=== PATIENT | female | born 1980 | race Asian ===

== ENCOUNTER 2024-06-18 22:24 | Emergency (ER) | payer SELFPAY ==
[2024-06-18 22:28] VITALS: BP 128/87
[2024-06-18 22:51] LABS: % Basophils 0.8 % (0-2); % Eosinophils 4.6 % (0-6); % Immature Granulocytes 0.4 % (0-0.5); % Lymphocytes 32.2 % (20.5-51.1); % Monocytes 8.5 % (1.7-9.3); % Neutrophils 53.5 % (42.2-75.2); Absolute Basophils 0.1 10^3/uL (0-0.2); Absolute Eosinophils 0.4 10^3/uL (0-0.7); Absolute Lymphocytes 2.5 10^3/uL (1.2-3.4); Absolute Monocytes 0.7 10^3/uL (0.1-0.6); Absolute Neutrophils 4.1 10^3/uL (1.4-6.5); Hematocrit 37.6 % (37.0-47.0); Hemoglobin 13.3 g/dL (12.0-16.0); Mean Corp Hgb Conc. 35.4 g/dL (33.0-37.0); Mean Corpuscular Volume 84.9 fL (81.0-99.0); Mean Platelet Volume 9.1 fL (7.4-10.4); Nucleated Red Blood Cells % 0 %; Platelet Count 290 10^3/uL (130-400); Red Blood Cell Count 4.43 10^6/uL (4.20-5.40); Red Cell Dist. Width 12.4 % (11.5-14.5); White Blood Cell Count 7.6 10^3/uL (4.8-10.8)
[2024-06-18 22:59] LABS: HCG, Serum Qualitative Screen Negative
[2024-06-18 23:03] LABS: ALT (SGPT) 19 U/L (0-35); AST (SGOT) 24 U/L (14-36); Albumin 4.6 g/dl (3.5-5.0); Alkaline Phosphatase 53 U/L (38-126); Blood Urea Nitrogen 9 mg/dl (7-17); Calcium 9.5 mg/dl (8.4-10.2); Carbon Dioxide 22 mmol/L (22-30); Chloride 104 mmol/L (98-107); Glucose 110 mg/dl (70-99); Lipase 86 U/L (23-300); Potassium 4.1 mmol/L (3.5-5.1); Sodium 139 mmol/L (135-145); Total Bilirubin 0.5 mg/dl (0.2-1.3); Total Protein 7.4 g/dl (6.3-8.2); eGFR > 60.00
[2024-06-18 23:12] LABS: Troponin I 0.025 ng/ml
[2024-06-19 01:22] VITALS: BP 102/72
[2024-06-19 01:26] VITALS: BMI 29.8
[2024-06-19 01:49] VITALS: BP 102/67
[2024-06-19 02:00] VITALS: BP 107/72
[2024-06-19 02:22] LABS: Troponin I < 0.012 ng/ml
[2024-06-19 02:40] LABS: D-Dimer < 0.27 ug/mlFEU (0.00-0.50)
--- NOTE | 2024-06-19 02:57 | ED.GENMED ---
History of Present Illness
General
Chief Complaint: Abdominal Pain
Source: patient and family
Exam Limitations: none
Time Seen by Provider: 06/19/24 01:09
History of Present Illness
History of Present Illness:
43-year-old female with about 3 days of epigastric pain with radiation to the left upper back. No shortness of breath no pleuritic pain. No nausea or vomiting. No exertional component. No history of similar episodes.
Past History
Past History
ED Past Medical History: Hypercholesterolemia and Hypothyroidism
Review of Systems
Review of Systems
All Other Systems: Not applicable
Constitutional: Denies fever
Respiratory: Denies trouble breathing
Cardiac: Denies syncope
Phy Exam
Physical Exam
Physical Exam:
GENERAL: Alert and oriented in no apparent distress
EYE: Orbits normal.
NECK: Supple
CARDIAC: Regular rate and rhythm without any obvious murmurs.
LUNGS: Clear breath sounds,normal
ABDOMEN: Soft, minimal epigastric tenderness. No rebound or guarding no mass or hernia
NEUROLOGICAL: Alert and oriented , grossly non-focal
SKIN: Warm and dry, no rash or lesion, no discoloration, skin intact.
MUSCULOSKELETAL: No edema,no deformity.Good color
PSYCH: Normal and appropriate interaction.
Course
Orders/Labs/Results
Orders:
Orders
06/18/24 22:32
Electrocardiogram (*1) Urgent
Reason for Study: Chest Pain
EKG- Treatment ONCE
Test Result ONCE
06/18/24 22:41
Complete Blood Count/With Diff Urgent
Comprehensive Metabolic Panel Urgent
HCG, Serum Qualitative Screen Urgent
Lipase Urgent
Troponin I Urgent
06/19/24 01:19
US Abdomen Complete/Upper Urgent
Comment:
Reason For Exam: Upper abdominal pain/radiation to back
06/19/24 01:20
Electrocardiogram (*1) Stat
Reason for Study: Other
Other Reason for Exam: chest pain
EKG- Treatment ONCE
06/19/24 01:48
D-Dimer Urgent
Troponin I Urgent
06/19/24 03:10
EKG- Treatment ONCE
Pantoprazole [Protonix IV] 40 mg IV NOW STA
06/19/24 03:11
CT Abd/Pel (IV only)-DH only Urgent
Comment:
Reason For Exam: Upper abdominal pain to back
06/19/24 04:00
Electrocardiogram (*1) Stat
Reason for Study: Other
Other Reason for Exam: chest pain
06/19/24 04:20
Troponin I Urgent
Abnormal Lab Results
06/18/24
22:41
Absolute Monos (auto) 0.7 H 10^3/uL
(0.1-0.6)
Glucose 110 H mg/dl
(70-99)
06/18/24 22:41
06/18/24 22:41
Vital Signs
Initial and Last Documented VS:
Initial Vital Signs
Temp Pulse Resp BP Pulse Ox
98.6 F 81 18 128/87 96
06/18/24 22:28 06/18/24 22:28 06/18/24 22:28 06/18/24 22:28 06/18/24 22:28
Last Documented Vital Signs
Temp Pulse Resp BP Pulse Ox
98.6 F 88 20 107/66 100
06/18/24 22:28 06/19/24 05:34 06/19/24 05:34 06/19/24 05:34 06/19/24 05:34
*Radiology
Radiology exam reviewed: radiology read reviewed (Unremarkable ultrasound)
*Pulse Oximetry
Patient hypoxic: no
*EKG
Interpreted by ED Provider?: Yes
Interpretation: normal
Comparison EKG: no comparison EKG present
Heart Rate: 78
Rate: normal
Rhythm: sinus
[place]: normal axis
Interval: normal interval
QRS Pattern: normal QRS
Ischemia: no ischemia
*Critical Care Note
Total Time (30-74mins, 75-104mins- exclusive of procedures): Not Applicable
Update Note
Update Note:
Repeat EKG with no acute changes. Rate 73. No ischemic changes.
All initial testing is negative. Ultrasound is unremarkable. Labs are normal cardiac testing normal x 2. D-dimer negative. Very very low suspicion for vascular emergency. Patient states she is essentially asymptomatic at this time. On further
history patient states she has had this for about a week she wakes up fine in the morning it is worse in the afternoon and evening after eating. She is convinced heavy meals make the pain worse. Given the location of the discomfort this would be
most consistent with a gastritis or possibly peptic ulcer disease. However because of her elevated cholesterol issue we will do a third troponin and EKG. Will start on Protonix and have follow-up if all this testing is negative
ED Attending Note
-
Portions of this chart may have been created with voice recognition software.� Occasional wrong word or��sound alike� substitutions may have occurred due to the inherent limitations of voice recognition software.
Discharge Plan
Departure
Patient Disposition: Home (Routine Discharge)
Date of Disposition: 06/19/24
Time of Disposition: 05:23
Patient with high blood pressure during this ER visit?: No
Condition: Good
Discharge Problem:
Epigastric pain
Instructions: Chest Pain CBC Follow Up, Abdominal Pain
Prescriptions:
New
pantoprazole [Protonix] 40 mg tablet,delayed release (DR/EC)
40 mg PO DAILY Qty: 14 0RF
Referrals:
Daisy Akers MD [Active] - Next open appointment
NONE,* [Family Provider] -
Activity Restrictions/Additional Instructions:
Your prescription was sent to your pharmacy
I gave you the name of a GI physician you could call also with persistent symptoms
Of course if your symptoms progress, chest pain shortness of breath fever, immediately return to the ER for reevaluation
Interventions
Interventions:
*Risk Screen - Suicide Last Done: 06/18/24 22:28
*General Assessment Last Done: 06/18/24 22:28
*Neglect/Abuse Screening Last Done: 06/18/24 22:28
ED- Fall Risk Assessment Last Done: 06/19/24 01:23
*ED COVID-19 Vaccine History Last Done: 06/19/24 01:23
*Nursing Disposition Last Done: 06/19/24 04:35
TG-Dzujfn-Ztkgxddgeq Assessment Last Done: 06/19/24 01:23
Discharge Date and Time
Discharge Date/Time: 06/19/24 05:35
Print Language: HUNGARIAN
[2024-06-19] MEDS: PROTONIX IV 40 MG IV (04:24)
[2024-06-19 04:28] VITALS: BP 104/61
[2024-06-19 05:00] VITALS: BP 107/66
[2024-06-19 05:09] LABS: Troponin I < 0.012 ng/ml
[2024-06-19 05:34] VITALS: BP 107/66
== END 2024-06-19 05:35 | disposition home or self-care (01) ==
LOC: EMR 22:24
PROVIDERS: EMERGENCY PHYSICIAN Emergency Medicine
DX: R10.13 Epigastric pain (principal); M54.6 Pain in thoracic spine; R07.9 Chest pain, unspecified; E78.00 Pure hypercholesterolemia, unspecified; E03.9 Hypothyroidism, unspecified
CPT/HCPCS: 99285; 96374; 74177; 76700; 80053; 83690; 84484; 84703; 85025; 85379; 93005; Q9967

== ENCOUNTER 2024-12-30 14:50 | Emergency (ER) | payer SELFPAY ==
[2024-12-30 14:52] VITALS: BP 128/99
[2024-12-30 15:10] LABS: % Basophils 0.3 % (0-2); % Eosinophils 10.3 % (0-6); % Immature Granulocytes 0.6 % (0-0.5); % Lymphocytes 33.2 % (20.5-51.1); % Monocytes 8.2 % (1.7-9.3); % Neutrophils 47.4 % (42.2-75.2); Absolute Eosinophils 0.8 10^3/uL (0-0.7); Absolute Immature Granulocytes 0.1 10^3/uL (0-0.05); Absolute Lymphocytes 2.6 10^3/uL (1.2-3.4); Absolute Monocytes 0.6 10^3/uL (0.1-0.6); Absolute Neutrophils 3.7 10^3/uL (1.4-6.5); Hemoglobin 13.1 g/dL (12.0-16.0); Mean Corp Hgb Conc. 34.5 g/dL (33.0-37.0); Mean Corpuscular Hgb 29.2 pg (27.0-31.0); Mean Corpuscular Volume 84.6 fL (81.0-99.0); Mean Platelet Volume 8.8 fL (7.4-10.4); Nucleated Red Blood Cells % 0 %; Platelet Count 325 10^3/uL (130-400); Red Blood Cell Count 4.49 10^6/uL (4.20-5.40); Red Cell Dist. Width 13.2 % (11.5-14.5); White Blood Cell Count 7.8 10^3/uL (4.8-10.8)
[2024-12-30 15:24] LABS: ALT (SGPT) 16 U/L (0-35); AST (SGOT) 21 U/L (14-36); Albumin 4.4 g/dl (3.5-5.0); Alkaline Phosphatase 61 U/L (38-126); Blood Urea Nitrogen 11 mg/dl (7-17); Calcium 9.8 mg/dl (8.4-10.2); Carbon Dioxide 24 mmol/L (22-30); Chloride 104 mmol/L (98-107); Glucose 113 mg/dl (70-99); Lipase 98 U/L (23-300); Potassium 3.9 mmol/L (3.5-5.1); Sodium 137 mmol/L (135-145); Total Bilirubin 0.5 mg/dl (0.2-1.3); Total Protein 7.3 g/dl (6.3-8.2); eGFR > 60.00
--- NOTE | 2024-12-30 16:14 | ED.GENMED ---
History of Present Illness
General
Chief Complaint: Abdominal Pain
Source: patient
Exam Limitations: none
Time Seen by Provider: 12/30/24 16:05
Nursing documentation reviewed up to this point in time: agreed with
History of Present Illness
History of Present Illness:
44-year-old female with past medical history of hyperlipidemia, hypothyroidism who presents emergency department today with concerns of diffuse abdominal pain for the past 6 days. Patient states that she does get some acid reflux occasionally
states that this started with some epigastric pain and reflux symptoms however then she started to get pain with eating and noted that she started to have right sided belly pain and now feels belly pain diffusely, worse in the right lower quadrant..
She denies any shortness of breath. She also notes some nausea but no vomiting. Patient states that this has been difficult for her to eat due to the pain. She denies radiation of the pain to the back. She denies any family personal history of
cardiac disease. She denies any vaginal discharge. She denies any burning with urination.
Past History
Past History
ED Past Medical History: Hypercholesterolemia and Hypothyroidism
Review of Systems
Review of Systems
All Other Systems: ROS reviewed and negative except as documented in HPI and ROS
Phy Exam
Physical Exam
Physical Exam:
General: Patient is well appearing and in no acute distress; non-toxic
Skin: Warm and dry, no rashes or lesions
Head: Normocephalic, atraumatic
Eyes: Sclera non-icteric. EOMs intact.
Cardiac: Regular rate and rhythm, no murmurs, no tenderness palpation of external chest wall
Pulm: Normal respiratory effort, no wheezes, rales, rhonchi
Abdomen: Mild right lower quadrant tenderness to palpation, no rebound tenderness, no guarding, normoactive bowel sounds
Neuro: CN II-XII intact, no focal neurologic deficits.
Psychiatric: Appropriate mood and affect.
Course
Orders/Labs/Results
Orders:
Orders
12/30/24 14:58
Complete Blood Count/With Diff Urgent
Comprehensive Metabolic Panel Urgent
Lipase Urgent
12/30/24 16:44
Electrocardiogram (*1) Urgent
Reason for Study: Abdominal Pain
EKG- Treatment ONCE
0.9% Sodium Chloride 500 ml [Nss] 500 ml IV BOLUS
Ketorolac [Toradol] 15 mg IV NOW STA
12/30/24 16:45
CT Abd/pelvis W Iv Cont Urgent
Comment:
Reason For Exam: diffuse abdominal pain, worse on the right side
12/30/24 17:05
HCG, Serum Qualitative Screen Urgent
Lipase Urgent
Troponin I Urgent
12/30/24 17:09
Ondansetron Injectable [Zofran] 4 mg .ROUTE .STK-MED ONE
12/30/24 17:11
Ondansetron Injectable [Zofran] 4 mg IV NOW STA
12/30/24 17:36
Add On- LAB Urgent
Tests Added?: hcg qual
12/30/24 18:18
Urinalysis Reflex To Culture Urgent
Date Specimen was Collected: 12/30/24
Time Specimen was Collected: 18:17
Abnormal Lab Results
12/30/24
14:58
Abs Immat Gran (auto) 0.1 H 10^3/uL
(0-0.05)
Absolute Eos (auto) 0.8 H 10^3/uL
(0-0.7)
Immature Gran % 0.6 H %
(0-0.5)
Eosinophils % 10.3 H %
(0-6)
Glucose 113 H mg/dl
(70-99)
12/30/24 14:58
12/30/24 14:58
Vital Signs
Initial and Last Documented VS:
Initial Vital Signs
Temp Pulse Resp BP Pulse Ox
98.5 F 78 16 128/99 99
12/30/24 14:52 12/30/24 14:52 12/30/24 14:52 12/30/24 14:52 12/30/24 14:52
Last Documented Vital Signs
Temp Pulse Resp BP Pulse Ox
98.2 F 72 16 108/70 98
12/30/24 20:51 12/30/24 20:51 12/30/24 20:51 12/30/24 20:51 12/30/24 20:51
MDM/Problems Addressed
Differential Diagnosis Includes:
Differentials include gastroenteritis, ovarian torsion, appendicitis, gastritis, duodenitis, ACS
MDM/Problems Addressed:
44-year-old female presents emergency department today with concerns of a week of abdominal pain. She feels like it is worse with movement worse on the right side. Started as sounding like reflux symptoms but then progressed to lower has gotten
worse. Here emergency department, patient is well-appearing no acute distress her physical exam is benign, she is afebrile. CBC and CMP unremarkable. She is not . Urinalysis negative. Troponin undetectable. EKG shows normal sinus
rhythm with no ischemic changes, no concern for ACS at this time considering patient longer has a sensation of pain radiating into her chest. CTs shows evidence of ruptured ovarian cyst with no evidence of appendicitis, suspect this in combination
with potential GERD symptoms have been responsible for her pain. Discussed conservative management follow-up with GI and an [facility] clinic. Patient stable for discharge.
*Pulse Oximetry
Patient hypoxic: no
*Critical Care Note
Total Time (30-74mins, 75-104mins- exclusive of procedures): Not Applicable
Data Reviewed
Review of Other/Old Records Reveals: Records
Patient Management
Escalation/DeEscalation of care consider admission/obs:
Admit not indicated, patient stable for discharge, case reviewed with my
ED Attending Note
-
Portions of this chart may have been created with voice recognition software.� Occasional wrong word or��sound alike� substitutions may have occurred due to the inherent limitations of voice recognition software.
Discharge Plan
Departure
Patient Disposition: Home (Routine Discharge)
Date of Disposition: 12/30/24
Time of Disposition: 21:00
Patient with high blood pressure during this ER visit?: No
Condition: Good
Discharge Problem:
Right sided abdominal pain, Rupture of ovarian cyst
Instructions: Ovarian cysts, Abdominal Pain, BLOOD PRESSURE
Prescriptions:
No Action
pantoprazole [Protonix] 40 mg tablet,delayed release (DR/EC)
40 mg PO DAILY Qty: 14 0RF
Referrals:
[facility] [Provider Group] - Call in 1-3 days for appt
Morro Bolton MD [Active] - Call in 1-3 days for appt
NONE,* [Family Provider] -
Activity Restrictions/Additional Instructions:
You can take Ibuprofen for your symptoms which you can buy [id number]. You can take 600 mg every 6 hours as needed for your pain for the next 3 days. You can take this with food.
Considering you have had similar pain in the past, I recommend calling the attached number to schedule appointment to see gastroenterology. I also recommend establishing care with a primary care provider to see you in follow-up and to continue to
monitor your symptoms. You can call the attached number for the [facility] to schedule an appointment. They will see you without insurance.
PLEASE RETURN TO THE EMERGENCY DEPARTMENT SHOULD YOU DEVELOP AN ACUTE WORSENING OF YOUR SYMPTOMS, INTRACTABLE NAUSEA OR VOMITING, FEVERS OR CHILLS, RECTAL BLEEDING, PERSISTENT DIARRHEA,, DIZZINESS, LIGHTHEADEDNESS, OR ANY OTHER SIGNS OR SYMPTOMS
WORRISOME TO YOU.
Interventions
Interventions:
*Risk Screen - Suicide Last Done: 12/30/24 14:52
*General Assessment Last Done: 12/30/24 14:52
*Neglect/Abuse Screening Last Done: 12/30/24 14:52
*ED- Fall Risk Assessment Last Done: 12/30/24 17:16
*ED COVID-19 Vaccine History Last Done: 12/30/24 14:52
*Nursing Disposition Last Done: 12/30/24 21:30
HQ-Bkykew-Mpbyvzfxbm Assessment Last Done: 12/30/24 17:16
Discharge Date and Time
Discharge Date/Time: 12/30/24 21:30
Print Language: POLISH
[2024-12-30 17:02] VITALS: BMI 28.4
[2024-12-30] MEDS: NSS 500 IV (17:06)
[2024-12-30] MEDS: TORADOL 15 MG IV (17:06)
[2024-12-30] MEDS: ZOFRAN 4 MG IV (17:11)
[2024-12-30 17:14] VITALS: BP 110/76
[2024-12-30 17:26] LABS: Lipase 92 U/L (23-300)
[2024-12-30 17:35] LABS: Troponin I < 0.012 ng/ml
[2024-12-30 17:56] LABS: HCG, Serum Qualitative Screen Negative
[2024-12-30 18:25] LABS: Urine Albumin Negative (Neg - Trace); Urine Bilirubin Negative (Negative); Urine Character Clear (Clear); Urine Glucose Negative (Negative); Urine Ketone Negative (Negative); Urine Leukocyte Negative (Negative); Urine Nitrite Negative (Negative); Urine Occult Blood Negative (Negative); Urine Urobilinogen Negative (Neg - 1+)
[2024-12-30 18:26] LABS: Urine Color Straw
[2024-12-30 20:51] VITALS: BP 108/70
== END 2024-12-30 21:30 | disposition home or self-care (01) ==
LOC: EMR 14:50
PROVIDERS: Physician Assistant; EMERGENCY PHYSICIAN Emergency Medicine
DX: R10.9 Unspecified abdominal pain (principal); E78.00 Pure hypercholesterolemia, unspecified; E03.9 Hypothyroidism, unspecified; K21.9 Gastro-esophageal reflux disease without esophagitis
CPT/HCPCS: 99284; 96374; 96375; 74177; 80053; 81003; 83690; 84484; 84703; 85025; 93005; Q9967

== ENCOUNTER 2025-01-01 16:04 | Emergency (ER) | payer SELFPAY ==
[2025-01-01 16:09] VITALS: BP 122/73
[2025-01-01 16:26] LABS: % Basophils 0.5 % (0-2); % Immature Granulocytes 0.8 % (0-0.5); % Lymphocytes 32.3 % (20.5-51.1); % Neutrophils 44.4 % (42.2-75.2); Absolute Eosinophils 0.9 10^3/uL (0-0.7); Absolute Immature Granulocytes 0.1 10^3/uL (0-0.05); Absolute Lymphocytes 2.1 10^3/uL (1.2-3.4); Absolute Monocytes 0.5 10^3/uL (0.1-0.6); Absolute Neutrophils 2.9 10^3/uL (1.4-6.5); Hematocrit 38.8 % (37.0-47.0); Hemoglobin 13.3 g/dL (12.0-16.0); Mean Corp Hgb Conc. 34.3 g/dL (33.0-37.0); Mean Corpuscular Hgb 29.1 pg (27.0-31.0); Mean Corpuscular Volume 84.9 fL (81.0-99.0); Nucleated Red Blood Cells % 0 %; Platelet Count 340 10^3/uL (130-400); Red Blood Cell Count 4.57 10^6/uL (4.20-5.40); Red Cell Dist. Width 13.3 % (11.5-14.5); White Blood Cell Count 6.6 10^3/uL (4.8-10.8)
[2025-01-01 16:37] LABS: HCG, Serum Qualitative Screen Negative
[2025-01-01 16:41] LABS: ALT (SGPT) 15 U/L (0-35); AST (SGOT) 22 U/L (14-36); Albumin 4.4 g/dl (3.5-5.0); Alkaline Phosphatase 63 U/L (38-126); Blood Urea Nitrogen 8 mg/dl (7-17); Calcium 9.5 mg/dl (8.4-10.2); Carbon Dioxide 23 mmol/L (22-30); Chloride 107 mmol/L (98-107); Glucose 119 mg/dl (70-99); Lipase 103 U/L (23-300); Potassium 3.9 mmol/L (3.5-5.1); Sodium 139 mmol/L (135-145); Total Bilirubin 0.4 mg/dl (0.2-1.3); Total Protein 7.6 g/dl (6.3-8.2); eGFR > 60.00
--- NOTE | 2025-01-01 17:58 | ED.GENMED ---
History of Present Illness
General
Chief Complaint: Abdominal Pain
Time Seen by Provider: 01/01/25 17:57
History of Present Illness
History of Present Illness:
TIME OF INITIAL ENCOUNTER: 6 PM
HPI: The patient presents with abdominal pain. She was seen here 2 days ago with abdominal pain but today the pain is more in the upper abdomen. 2 days ago, she was diagnosed with a ruptured ovarian cyst. However, she does not have any
significant lower pain. She says that the pain worsened a few hours after she ate. When she was living in [facility], she had a problem with some 'swelling of my large intestine'.
EXAM:
GENERAL: Well appearing in mild distress
HEENT: Moist oral mucosa
CARDIOVASCULAR: No murmurs, normal heart rate, regular rhythm, No chest wall tenderness
PULMONARY: No respiratory distress, breath sounds are clear and equal
ABDOMEN: Soft with no peritoneal signs, mild upper abdominal tenderness
NEUROLOGIC: Excellent strength all extremities, no coordination deficits
PSYCHIATRIC: Appropriate mental status, normal insight and judgement
EXTREMITIES: Nontender, no edema, moves all extremities equally
SKIN: No rash, no lesions
NUMBER AND COMPLEXITY OF PROBLEMS ADDRESSED AT THE ENCOUNTER
� Chronic conditions affecting care: Hyperlipidemia, hypothyroidism
� Acute Exacerbation and/or Progression of Chronic Illness: this is an acute problem
� Differential Diagnosis includes: GERD, gastritis, biliary colic, esophagitis, doubt ovarian pathology based on the location of her symptoms
AMOUNT AND/OR COMPLEXITY OF DATA TO BE REVIEWED AND ANALYZED
� I performed an independent evaluation of and my interpretation is:
EKG:
CT:
X-rays:
Laboratory Studies: White count 6.6, hemoglobin 13.3, chemistries unremarkable, hCG negative
Other: Ultrasound imaging shows a fatty liver but no sign of biliary/gallbladder disease
� Review of other/old records: I reviewed records. The patient was seen here 2 days ago. At that time white count was also normal, chemistries and hCG were also normal. She had a CAT scan of the abdomen pelvis with IV contrast
that suggested right ovarian cyst rupture.
� Clinical information was obtained by an independent historian: None needed
� Prescriptions/Medications Considered but not given:
� Further testing considered but not performed:
RISK OF COMPLICATIONS AND/OR MORBIDITY OR MORTALITY OF PATIENT MANAGEMENT
� Social determinants of health affecting care: Lives at home, lived in [place] until 1 year ago
� Discussion with other providers:
� Escalation of care including admission/observation vs risk of discharge considered: Based on location of pain and description of pain, more strongly favor GERD type of symptoms. Will give Pepcid, Protonix, and Carafate and
also check ultrasound imaging. Blood work is reassuring.
ANY OTHER UPDATES:
8:15 PM: I reassessed patient. Pain persists but somewhat improved after meds given. Will give prescription for Carafate. I am also contacting GI front office to try to expedite urgent follow-up.
Past History
Past History
ED Past Medical History: Hypercholesterolemia and Hypothyroidism
Phy Exam
Physical Exam
Physical Exam:
See HPI
Course
Orders/Labs/Results
Orders:
Orders
01/01/25 16:13
Test Result ONCE
01/01/25 16:17
CMP [Comprehensive Metabolic Panel] Urgent
Complete Blood Count/With Diff Urgent
HCG, Serum Qualitative Screen Urgent
Lipase Urgent
01/01/25 18:09
Famotidine [Pepcid] 20 mg IV NOW STA
Pantoprazole [Protonix IV] 40 mg IV NOW STA
Sucralfate Suspension [Carafate Suspension] 1 gm PO NOW STA
US Abdomen Limited Urgent
Reason For Exam: upper pain,concern for gallstones
Abnormal Lab Results
01/01/25
16:17
Abs Immat Gran (auto) 0.1 H 10^3/uL
(0-0.05)
Absolute Eos (auto) 0.9 H 10^3/uL
(0-0.7)
Immature Gran % 0.8 H %
(0-0.5)
Eosinophils % 14.0 H %
(0-6)
Glucose 119 H mg/dl
(70-99)
01/01/25 16:17
01/01/25 16:17
Vital Signs
Initial and Last Documented VS:
Initial Vital Signs
Temp Pulse Resp BP Pulse Ox
36.8 C 74 18 122/73 100
01/01/25 16:09 01/01/25 16:09 01/01/25 16:09 01/01/25 16:09 01/01/25 16:09
Last Documented Vital Signs
Temp Pulse Resp BP Pulse Ox
36.8 C 85 14 102/67 100
01/01/25 16:09 01/01/25 20:00 01/01/25 20:00 01/01/25 20:00 01/01/25 20:00
*Critical Care Note
Total Time (30-74mins, 75-104mins- exclusive of procedures): Not Applicable
ED Attending Note
-
Portions of this chart may have been created with voice recognition software.� Occasional wrong word or��sound alike� substitutions may have occurred due to the inherent limitations of voice recognition software.
Discharge Plan
Departure
Patient Disposition: Home (Routine Discharge)
Date of Disposition: 01/01/25
Time of Disposition: 20:20
Patient with high blood pressure during this ER visit?: Yes
Discharge Problem:
Abdominal pain
Instructions: Acid Reflux and GERD in Adults (DC), Abdominal Pain, BLOOD PRESSURE
Prescriptions:
New
sucralfate [Carafate] 100 mg/mL suspension
10 ml PO QID Qty: 400 0RF
No Action
pantoprazole [Protonix] 40 mg tablet,delayed release (DR/EC)
40 mg PO DAILY Qty: 14 0RF
Referrals:
NONE,* [Family Provider] -
Angela Anne, DO [Active] - Next open appointment
Activity Restrictions/Additional Instructions:
I sent a message to Dr. Anne's office to try to get you an earlier appointment. Somebody from their office should be calling you tomorrow. Your blood work again is normal. The CAT scan from the other day was unremarkable and the ultrasound from
[facility] shows a fatty liver but no other abnormal finding. Continue the meds that you were on but I am also sending a prescription for Carafate to help coat the esophagus and stomach.
Interventions
Interventions:
*Risk Screen - Suicide Last Done: 01/01/25 16:09
*General Assessment Last Done: 01/01/25 18:14
*Neglect/Abuse Screening Last Done: 01/01/25 16:09
*ED COVID-19 Vaccine History Last Done: 01/01/25 16:09
CZ-Sexbuv-Fpmhjnlouz Assessment Last Done: 01/01/25 18:15
Discharge Date and Time
Print Language: PORTUGUESE
[2025-01-01 18:00] VITALS: BP 111/62
[2025-01-01 18:13] VITALS: BMI 29.5
[2025-01-01] MEDS: CARAFATE SUSPENSION 1 GM PO (18:17)
[2025-01-01] MEDS: PEPCID 20 MG IV (18:19)
[2025-01-01] MEDS: PROTONIX IV 40 MG IV (18:19)
[2025-01-01 20:00] VITALS: BP 102/67
== END 2025-01-01 20:52 | disposition home or self-care (01) ==
LOC: EMR 16:04
PROVIDERS: Emergency Medicine; EMERGENCY PHYSICIAN Emergency Medicine
DX: R10.10 Upper abdominal pain, unspecified (principal); R03.0 Elevated blood-pressure reading, without diagnosis of hypertension; E78.00 Pure hypercholesterolemia, unspecified; E03.9 Hypothyroidism, unspecified
CPT/HCPCS: 99284; 96374; 96375; 76705; 80053; 83690; 84703; 85025

== ENCOUNTER → 2025-01-03 11:43 | Outpatient (REF) | payer SELFPAY ==
[2025-01-03 14:17] LABS: IgA 215 mg/dl (70-400)
[2025-01-04 11:14] LABS: H. pylori Breath Test Negative (Negative)
[2025-01-06 00:46] LABS: tTG IgA Antibody <1.02 FLU (0.00-4.99)
== END ==
LOC: REG 11:43
PROVIDERS: ATTENDING PHYSICIAN Internal Medicine Gastroenterology
DX: R10.13 Epigastric pain (principal)
CPT/HCPCS: 82784; 83013; 83516; 86231

== ENCOUNTER → 2025-01-04 09:15 | Outpatient (REF) | payer SELFPAY | LOC: REG 09:15 | PROVIDERS: ATTENDING PHYSICIAN Internal Medicine Gastroenterology | DX: R10.13 Epigastric pain (principal) | CPT/HCPCS: 87338 ==

== ENCOUNTER 2025-01-06 17:20 | Emergency (ER) | payer SELFPAY ==
[2025-01-06 17:21] VITALS: BP 121/81
[2025-01-06 17:36] LABS: % Basophils 0.9 % (0-2); % Eosinophils 17.2 % (0-6); % Immature Granulocytes 0.5 % (0-0.5); % Lymphocytes 32.2 % (20.5-51.1); % Neutrophils 43.2 % (42.2-75.2); Absolute Basophils 0.1 10^3/uL (0-0.2); Absolute Eosinophils 1.3 10^3/uL (0-0.7); Absolute Lymphocytes 2.5 10^3/uL (1.2-3.4); Absolute Monocytes 0.5 10^3/uL (0.1-0.6); Absolute Neutrophils 3.4 10^3/uL (1.4-6.5); Hematocrit 36.8 % (37.0-47.0); Hemoglobin 13.1 g/dL (12.0-16.0); Mean Corp Hgb Conc. 35.6 g/dL (33.0-37.0); Mean Corpuscular Hgb 29.8 pg (27.0-31.0); Mean Corpuscular Volume 83.8 fL (81.0-99.0); Mean Platelet Volume 8.6 fL (7.4-10.4); Nucleated Red Blood Cells % 0 %; Platelet Count 324 10^3/uL (130-400); Red Blood Cell Count 4.39 10^6/uL (4.20-5.40); Red Cell Dist. Width 13.2 % (11.5-14.5); White Blood Cell Count 7.8 10^3/uL (4.8-10.8)
[2025-01-06 17:51] LABS: HCG, Serum Qualitative Screen Negative
[2025-01-06 17:53] LABS: ALT (SGPT) 21 U/L (0-35); AST (SGOT) 22 U/L (14-36); Albumin 4.3 g/dl (3.5-5.0); Alkaline Phosphatase 64 U/L (38-126); Blood Urea Nitrogen 10 mg/dl (7-17); Calcium 9.4 mg/dl (8.4-10.2); Carbon Dioxide 25 mmol/L (22-30); Chloride 103 mmol/L (98-107); Glucose 134 mg/dl (70-99); Lipase 115 U/L (23-300); Potassium 3.6 mmol/L (3.5-5.1); Sodium 138 mmol/L (135-145); Total Bilirubin 0.3 mg/dl (0.2-1.3); Total Protein 7.2 g/dl (6.3-8.2); eGFR > 60.00
--- NOTE | 2025-01-06 19:27 | ED.GENMED ---
History of Present Illness
General
Chief Complaint: Abdominal Pain
Source: patient
Exam Limitations: none
Time Seen by Provider: 01/06/25 19:26
Nursing documentation reviewed up to this point in time: agreed with
History of Present Illness
History of Present Illness:
44 yo female here for 3rd time in 7 days for same symptoms. Epigastric pain, unable to eat due to this pain. 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 She is followed up with Dr. Currie Tuesday (2 days ago) and was told to continue Carafate and Omeprazole and
has Endoscopy scheduled for February 07. [place], [place] know how [place] medical system worked and thought she could get Endoscopy here in ED.
Past History
Past History
ED Past Medical History: Hypercholesterolemia and Hypothyroidism
Social History
Tobacco: Non-smoker
Alcohol: None
Personal:
Living: with family
Review of Systems
Review of Systems
Allergies reviewed?: Yes
All Other Systems: ROS reviewed and negative except as documented in HPI and ROS
Constitutional: Denies fever
Respiratory: Denies trouble breathing
Cardiac: Denies chest pain
ABD/GI: Reports abdominal pain, vomiting (vomited bile once today) and constipated; Denies diarrhea
: Denies dysuria, frequency or difficulty voiding
Musculoskeletal: Reports no symptoms
Skin: Reports no symptoms
Neurological: Reports no symptoms
Phy Exam
Physical Exam
Physical Exam:
GENERAL: No acute distress. A&Ox3.
CONSTITUTIONAL: Afebrile.
EYES: clear, conjunctivae normal
ENMT: moist mucus membranes
RESPIRATORY: Regular respirations, nonlabored, lungs clear.
CARDIOVASCULAR: Regular rate and rhythm, no murmurs, no rubs.
GI: Soft, generally mildly tender to palpate, normal BS
MUSCULOSKELETAL: Moves with ease. Well perfused.
SKIN: Warm, dry, normal
PSYCH: Normal mood and affect. Well kept, interactive and appropriate
NEUROLOGIC: Awake, alert and oriented. No focal neurological deficits
Course
Orders/Labs/Results
Orders:
Orders
01/06/25 17:24
Test Result ONCE
01/06/25 17:27
Complete Blood Count/With Diff Urgent
Comprehensive Metabolic Panel Urgent
HCG, Serum Qualitative Screen Urgent
Comment: Notify provider if positive test present
Lipase Urgent
01/06/25 19:32
Urinalysis Reflex To Culture Urgent
Date Specimen was Collected: 01/06/25
Time Specimen was Collected: 19:26
Abnormal Lab Results
01/06/25
17:27
Hct 36.8 L %
(37.0-47.0)
Absolute Eos (auto) 1.3 H 10^3/uL
(0-0.7)
Eosinophils % 17.2 H %
(0-6)
Glucose 134 H mg/dl
(70-99)
01/06/25 17:27
01/06/25 17:27
Vital Signs
Initial and Last Documented VS:
Initial Vital Signs
Temp Pulse Resp BP Pulse Ox
98.3 F 83 18 121/81 100
01/06/25 17:21 01/06/25 17:21 01/06/25 17:21 01/06/25 17:21 01/06/25 17:21
Last Documented Vital Signs
Temp Pulse Resp BP Pulse Ox
98.3 F 67 14 110/73 100
01/06/25 17:21 01/06/25 20:00 01/06/25 20:00 01/06/25 20:00 01/06/25 20:00
MDM/Problems Addressed
Differential Diagnosis Includes:
GERD, esophagitis
MDM/Problems Addressed:
44 yo female here for 3rd time in 7 days for same symptoms. Epigastric pain, unable to eat due to this pain. 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 She is followed up with Dr. Currie Tuesday (2 days ago) and was told to continue Carafate and Omeprazole and
has Endoscopy scheduled for February 07. She [place], didn't know how the medical system worked and thought she could get Endoscopy here in ED.
CBC normal
CMP normal
UA normal
hCG negative
After discussion regarding the fact that we do not do endoscopies in the emergency room, she will continue her medications and call Dr. Willoughby's office tomorrow to see if her endoscopy can be moved up.
*Critical Care Note
Total Time (30-74mins, 75-104mins- exclusive of procedures): Not Applicable
ED Attending Note
-
Portions of this chart may have been created with voice recognition software.� Occasional wrong word or��sound alike� substitutions may have occurred due to the inherent limitations of voice recognition software.
Discharge Plan
Departure
Patient Disposition: Home (Routine Discharge)
Date of Disposition: 01/06/25
Time of Disposition: 19:50
Patient with high blood pressure during this ER visit?: No
Condition: Fair
Discharge Problem:
Epigastric abdominal pain
Instructions: [place] diet, Abdominal Pain
Prescriptions:
No Action
sucralfate [Carafate] 100 mg/mL suspension
10 ml PO QID Qty: 400 0RF
omeprazole 20 mg Capsule,Delayed Release(Dr/Ec)
20 mg PO BID
Referrals:
Rajwinder Currie MD [Active] - Keep scheduled appt
Activity Restrictions/Additional Instructions:
As we discussed, continue the Omeprazole, Carafate as ordered
You may use Pepto Bismol as you have been doing (know it can turn your stools very dark colored)
We do not do Endoscopy in the Emergency Department
Eat a bland diet
Call Dr. Currie's office tomorrow and ask if there is any way they can call you for any cancellations or if you can have the Endoscopy sooner.
Interventions
Interventions:
*Risk Screen - Suicide Last Done: 01/06/25 17:21
*General Assessment Last Done: 01/06/25 17:21
*Neglect/Abuse Screening Last Done: 01/06/25 17:21
*ED- Fall Risk Assessment Last Done: 01/06/25 19:41
*ED COVID-19 Vaccine History Last Done: 01/06/25 17:21
*Nursing Disposition Last Done: 01/06/25 20:08
PT-Lhfljd-Tejzfkfkgj Assessment Last Done: 01/06/25 19:42
Discharge Date and Time
Discharge Date/Time: 01/06/25 20:08
Print Language: HONDURAN
--- NOTE | 2025-01-06 19:33 | EDRN ---
Pt saw Dr Currie on Tuesday and she is supposed to have an endoscopy February 07. Today, pt took her medications for reflux and she vomited once - bile. Pt says her stomach is upset and she cannot eat. When pt drinks, she does not have a problem
but when she eats, she gets pain in 1 hour. Pt says she is eating regular food. Unknown if she has lost weight. Pt takes omeprazole in morning on empty stomach and carafate QID.
[2025-01-06 19:39] LABS: Urine Albumin Negative (Neg - Trace); Urine Bilirubin Negative (Negative); Urine Character Clear (Clear); Urine Color Yellow; Urine Glucose Negative (Negative); Urine Ketone Negative (Negative); Urine Leukocyte Negative (Negative); Urine Nitrite Negative (Negative); Urine Occult Blood Negative (Negative); Urine Specific Gravity 1.015 (<1.030); Urine Urobilinogen Negative (Neg - 1+)
[2025-01-06 19:41] VITALS: BMI 28.8
[2025-01-06 20:00] VITALS: BP 110/73
== END 2025-01-06 20:08 | disposition home or self-care (01) ==
LOC: EMR 17:20
PROVIDERS: Emergency Medicine; EMERGENCY PHYSICIAN Emergency Medicine
DX: R10.13 Epigastric pain (principal); E78.00 Pure hypercholesterolemia, unspecified; E03.9 Hypothyroidism, unspecified
CPT/HCPCS: 99283; 80053; 81003; 83690; 84703; 85025